=== PATIENT | male | born 1950 | race Caucasian/White ===

== ENCOUNTER 2022-12-18 11:29 | Day surgery (SDC) | payer OTHER ==
[2022-12-17 17:14] VITALS: BMI 16.9
[2022-12-18 14:17] VITALS: RESP 18; TEMP 98
[2022-12-18 14:20] VITALS: BP 138/64; PULSE 72
== END 2022-12-18 14:24 | disposition home or self-care (01) ==
LOC: FASU-ENDO 11:29
PROVIDERS: ATTEND Internal Medicine Gastroenterology
PROC: 0DB78ZX Excision of Stomach, Pylorus, Via Natural or Artificial Opening Endoscopic, Diagnostic (ICD-10-PCS; 2022-12-18)
PROC: 0DB48ZX Excision of Esophagogastric Junction, Via Natural or Artificial Opening Endoscopic, Diagnostic (ICD-10-PCS; 2022-12-18)
PROC: 0DB98ZX Excision of Duodenum, Via Natural or Artificial Opening Endoscopic, Diagnostic (ICD-10-PCS; principal; 2022-12-18 13:44)
DX: K21.00 Gastro-esophageal reflux disease with esophagitis, without bleeding (principal); K29.50 Unspecified chronic gastritis without bleeding; B96.81 Helicobacter pylori [H. pylori] as the cause of diseases classified elsewhere
CPT/HCPCS: 88305-TC; 88342-TC

== ENCOUNTER 2023-01-15 07:07 | Day surgery (SDC) | payer OTHER ==
[2023-01-15 07:39] VITALS: RESP 18; TEMP 97; BMI 15.5
[2023-01-15] MEDS ORDERED: LIDOCAINE HCL/PF 2% SDV 5ML VIAL ONE (08:06)
[2023-01-15] MEDS ORDERED: PROPOFOL 160 ML ONE (08:07)
[2023-01-15 09:44] VITALS: PULSE 68
[2023-01-15 09:54] VITALS: BP 128/67
== END 2023-01-15 10:09 | disposition home or self-care (01) ==
LOC: FASU-ENDO 07:07
PROVIDERS: ATTEND Internal Medicine Gastroenterology
PROC: 0DBL8ZX Excision of Transverse Colon, Via Natural or Artificial Opening Endoscopic, Diagnostic (ICD-10-PCS; 2023-01-15)
PROC: 0DBN8ZX Excision of Sigmoid Colon, Via Natural or Artificial Opening Endoscopic, Diagnostic (ICD-10-PCS; principal; 2023-01-15 09:05)
DX: Z12.11 Encounter for screening for malignant neoplasm of colon (principal); D12.3 Benign neoplasm of transverse colon; D12.7 Benign neoplasm of rectosigmoid junction; K63.5 Polyp of colon; K64.1 Second degree hemorrhoids; R63.4 Abnormal weight loss; Z68.1 Body mass index [BMI] 19.9 or less, adult
CPT/HCPCS: 88305-TC